=== PATIENT | male | born 1995 | race Caucasian/White ===

== ENCOUNTER 2017-06-06 14:54 | Emergency (ER) | payer OTHER ==
[~2017-06-06] VITALS: Ht 172.7 cm; Wt 68.7 kg
[2017-06-06 15:01] VITALS: TEMP 36.7; Ht 172.7 cm; Wt 68.7 kg
--- NOTE | 2017-06-06 15:58 | EMERGENCY ROOM VISIT NOTE ---
History First contact with patient: 15:48 Chief Complaint: BACK PAIN Stated Complaint: BURNING/ITCHING GROIN AREA, SEVERE LOWER BACK PAIN History of Present Illness The patient is a 21 year old male who presents to the Emergency Room with complaints of dysuria. [place] itching and burning in groin area "inside" 2 days ago. Reports ongoing pain and burning with urinating since then. No blood in the urine. No purulent discharge from the penis. Has not noticed any lesions on the penis, no blistering. No warts. He does have some very mild lower abdominal discomfort, but does not localize to one specific side. Today is complaining of low back pain. It is all across his lower back. He denies any tenderness to the spine. He denies any injuries. He has not had any saddle anesthesia. He denies any our bladder incontinence. He does not have any sensory changes to the distal lower extremities. He denies any weakness. He is sexually active. Heterosexual. Multiple partners. Unaware of any STI diagnoses in partners. Usually not wearing protection during intercourse. No personal history of sexually transmitted. States yesterday he is doing some intensive rowing type exercises at the gym. Slight intermittent chills. No fevers. Occasional shakes. Continues to eat and drink without any issues. Denies any nausea, vomiting. He has not had any GI bleeding, or black tarry stools. Last week had a little scratchiness in the throat but has otherwise been well. Was told by mother to come to the ER to be evaluated for urinary tract infection. Review of Systems A 10 point review of systems was negative unless stated above. Social History Smoking Status: Current Some Day Smoker Smokeless Tobacco Use: No Alcohol Use: occasionally Drug Use: marijuana Marital Status: single Occupation Status: student Current/Historical Medications Scheduled Sulfa/Trimethoprim (Bactrim Ds 800MG/160MG), 1 TAB PO BID Allergies NKA Physical Exam Vital Signs Date Time Temp Pulse Resp B/P (MAP) Pulse Ox O2 Delivery O2 Flow Rate FiO2 06/06/17 18:09 81 14 131/65 99 06/06/17 16:45 82 18 112/64 97 Room Air 06/06/17 15:01 36.7 97 18 135/74 97 Room Air Pain Rating (0-10): 0 Physical Exam Constitutional: Vital signs as above were reviewed. Eyes: Pupils equal, round, and reactive to light. Extraocular muscles are intact. No proptosis. No photophobia. ENT: Mucous membranes are moist. Oropharynx is clear. No sinus tenderness. TMs are clear bilaterally. Cardiovascular: Heart with a regular rate and rhythm. Pulses are palpable and symmetric in all 4 extremities. No pedal edema appreciated. Respiratory: Lungs clear to auscultation bilaterally. No wheezes, rales, or rhonchi appreciated. No accessory muscle use. No retractions. No increased work of breathing. GI: Normal active bowel sounds. No abdominal hernias appreciated. No rebound. No guarding. Very mild suprapubic tenderness. No localization to the left or right lower quadrant : No CVA tenderness appreciated. Circumcised. No rashes No lesion No testicular epididymal tenderness No inguinal adenopathy Musculoskeletal: No midline cervical. No gross deformities. No bony tenderness. No calf swelling or tenderness. Lumbar paraspinal tenderness. Normal range of active motion. Strength 5/5 in the hips, knees, ankles. Normal L4-L5, S1 sensation. Patellar reflexes intact Integumentary: Warm, dry, no rashes appreciated. Neurological: Patient awake, alert, and oriented x 3. Lymph: No cervical lymphadenopathy appreciated. Medical Decision & Procedures Laboratory Results Test 06/06/17 16:30 Urine Color YELLOW Urine Appearance TURBID (CLEAR) Urine pH 8.5 (4.5-7.5) Urine Specific [place] 1.025 (1.000-1.030) Urine Protein NEG (NEG) Urine Glucose (UA) NEG (NEG) Urine Ketones NEG (NEG) Urine Occult Blood NEG (NEG) Urine Nitrite NEG (NEG) Urine Bilirubin NEG (NEG) Urine Urobilinogen NEG (NEG) Urine Leukocyte Esterase MODERATE (NEG) Urine WBC (Auto) >30 /hpf (0-5) Urine RBC (Auto) 0-4 /hpf (0-4) Urine Hyaline Casts (Auto) 1-5 /lpf (0-5) Urine Epithelial Cells (Auto) 5-10 /lpf (0-5) Urine Bacteria (Auto) NEG (NEG) Medications Administered Medications (Trade) Dose Ordered Sig/Brayan Route Start Time Stop Time Status Last Admin Dose Admin Ketorolac Tromethamine (Toradol Inj) 30 mg NOW STAT IV 06/06/17 16:06 06/06/17 16:08 DC 06/06/17 16:16 30 MG Azithromycin (Zithromax Tab) 1,000 mg NOW ONCE PO 06/06/17 17:15 06/06/17 17:16 DC 06/06/17 18:05 1,000 MG Ceftriaxone Sodium 250 mg/ Syringe 1 ml @ 0 mls/min NOW STAT IM 06/06/17 17:18 06/06/17 17:19 DC 06/06/17 18:06 250 MLS/MIN ED Course 15:50 - Complete history and examination was performed at the bedside UA ordered IM Toradol 30 mg Encouraged oral hydration 16:30 - Urine collected 17:00 - UA reviewed; moderate leukocyte esterases, with greater than 30 WBCs 17:15 -reviewed the UA with the patient. Recommended empiric treatment for sexually transmitted infection along with outpatient treatment for urinary tract infection. The patient is agreeable to the plan. 17:30 -discharge paper work was completed. Medical Decision Patient is a 21-year-old sexually active male with high risk for sexual transit infections. He presents with acute onset dysuria for the past 1-2 days. Also has low back pain which is suspect is more of a confounder with the additional history of strenuous low back exertion yesterday, and most likely due to lumbosacral strain. The differential for dysuria includes urinary tract infection, chlamydia infection, gonorrhea infection. Patient had no discharge from the penile meatus. He did not have any overt signs of genital lesions. He did not have any inguinal lymphadenopathy. He does not have any systemic symptoms on examination or history. Patient's UA was suggestive of urinary tract infection. As such we decided to treat empirically as an outpatient with Bactrim for 3 days. In addition, given high risk sexual behavior, we discussed with him empiric treatment for sexually transmitted infection to which she was agreeable. He was given 250 mg IM ceftriaxone and 1 g of oral azithromycin prior to discharge. Urine PCR is pending at the time of discharge. The urine culture is also pending at the time of discharge. The patient was notified that he would be contacted with the results of these and to call our office if he does not hear better result in the next 3-5 days. The patient was agreeable to discharge home with close follow-up with [facility]. All of his questions were answered and he was discharged in stable condition. Head Trauma GCS Score: 15 Medication Reconcilliation Current Medication List: was personally reviewed by me Blood Pressure Screening Patient's blood pressure: Normal blood pressure Impression Primary Impression: Urinary tract infection Additional Impressions: Chlamydia Gonorrhea Departure Information Dispostion Home / Self-Care Condition GOOD Prescriptions Sulfa/Trimethoprim (Bactrim Ds 800MG/160MG) Tab 1 TAB PO BID for 3 Days, #6 TAB Prov: Gerardo Childress MD 06/06/17 Patient Instructions ED STD Male Treated, [facility] Additional Instructions You came to the emergency room for discomfort with urination. We tested your urine for urinary tract infection. Your urine is suggestive that you do have an infection. We will discharge you with an antibiotic to take for the next several days. Please complete the antibiotic to its completion. You did note a history of unprotected sexual intercourse. Therefore we also had to consider the possibility of a sexually transmitted infection. We did send her urine off for testing to the lab. This will take several days. Given that your symptoms may be consistent with sexually transmitted infection, we treated you with ceftriaxone and azithromycin, to cover for chlamydia and gonorrhea, the 2 most common sexually transmitted infections. We will notify you of the results of your urine culture and chlamydia and gonorrhea testing. If you do not hear from us within the next 3-5 days, please call us back and ask for the results if they are available. When you go home please make sure you stay well-hydrated. Please Tylenol or Motrin for pain or discomfort. If your symptoms fail to improve, acutely worsen, please seek medical attention immediately by either calling your primary care provider or going to your nearest emergency department. Otherwise, please see your primary care provider within 1 week to ensure that your symptoms continue to improve. It was a pleasure to be involved in your care and we wish you all the best. Problem Qualifiers
[2017-06-06] MEDS ORDERED: KETOROLAC TROMETHAMINE 30 MG/ML VIAL IV STA (16:06)
[2017-06-06] MEDS ORDERED: SULF800T23 PO (17:10)
[2017-06-06] MEDS ORDERED: CEFTRIAXONE SOD INJ 250 MG/ML VIAL IM ONE (17:15)
[2017-06-06] MEDS ORDERED: AZITHROMYCIN 250 MG TAB PO ONE (17:15)
[2017-06-06] MEDS ORDERED: CEFTRIAXONE SOD INJ 250 MG in SYRINGE 0 ML IM STA (17:18)
[2017-06-06 18:09] VITALS: BP 131/65; PULSE 81; O2SAT 99
--- NOTE | 2017-06-06 18:32 | EMERGENCY ROOM VISIT NOTE ---
ED Visit Note First contact with patient: 15:48 HPI: 21M here with low back pain in the setting of regular workout schedule and using rower yesterday when pain first began. Additionally reports dysuria in the setting of regular unprotected sex. Plan: Exam is unremarkable. Normal external genitalia. No testicular/epididymal pain. UA with greater than 30 WBCs consistent with UTI. Will treat with oral antibiotics outpatient. She given the patient's symptoms will additionally treat for gonorrhea and chlamydia while lab results are pending. Patient given ceftriaxone and Zithromax in the ED. given no history of trauma or neurologic symptoms back pain likely muscular strain in the setting of his workout schedule. Plan for NSAIDs and ice. S follow-up. I reviewed the patient's past medical history, medications, and visit nursing notes. I discussed the case with the resident physician, examined the patient, and agree with the findings and plan as documented in the residents note unless otherwise clarified here by me.
== END 2017-06-06 18:12 | disposition home or self-care (01) ==
LOC: C.EDB 14:57
DX: N39.0 Urinary tract infection, site not specified (principal); A74.9 Chlamydial infection, unspecified; A54.9 Gonococcal infection, unspecified; F17.210 Nicotine dependence, cigarettes, uncomplicated